=== PATIENT | male | born 1945 | race Caucasian/White ===

== ENCOUNTER → 2017-07-08 | Outpatient (CLI) | payer MEDICARE, OTHER ==
[~2017-07-08] MED LIST: ASPI325; ATEN50; Aspir-Low81 MG PO; Benicar40 MG PO; CLON.5 PO; CLOP75; Coq-10100 MG PO; DIOVAN; FINA5; FIORICET 50-301 EACH PO; ISOMON60ER; KRILL OIL500 MG PO; METF500C; NITR.4SL; NITR.6SL; NITR.6SL SL; OLME20-12. PO; OLME5TAB; OXYC10ER PO; RASA1; SENN187 PO; SIMV40; SIMV40 PO; SITA100T2 PO; SOLI5 PO; SYMMETREL PO; UBID10; [UNRECOGNIZED DRUG - REMARK]
[2017-07-08 15:33] LABS: BASOPHILS ABSOLUTE AUTO 0.03 K/mm3 (0.00-0.23); BASOPHILS PERCENT AUTO 0 % (0-2); EOSINOPHILS ABSOLUTE AUTO 0.21 K/mm3 (0.00-0.68); EOSINOPHILS PERCENT AUTO 3 % (0-6); Hematocrit 44.6 % (37.0-53.0); Hemoglobin 15.2 g/dL (13.5-17.5); IMMATURE GRAN ABSOLUTE AUTO 0.05 K/mm3 (0.00-0.10); IMMATURE GRAN PERCENT AUTO 1 % (0-1); LYMPHOCYTES ABSOLUTE AUTO 1.88 K/mm3 (0.84-5.20); LYMPHOCYTES PERCENT AUTO 23 % (21-46); MONOCYTES ABSOLUTE AUTO 0.69 K/mm3 (0.16-1.47); MONOCYTES PERCENT AUTO 8 % (4-13); Mean Corpuscular HGB Conc 34.1 g/dL (31.5-36.5); Mean Corpuscular Volume 91 fL (80-100); Mean Platelet Volume 11.1 fL (9.1-12.4); NEUTROPHILS ABSOLUTE AUTO 5.35 K/mm3 (1.96-9.15); NEUTROPHILS PERCENT AUTO 65 % (41-73); NRBC ABSOLUTE 0.02 K/mm3 (0.00-0.02); NRBC Auto 0.2 /100 WBC (0.0-0.2); Platelet Count 245 K/mm3 (150-400); RDW Coefficient Variation 13.6 % (11.7-14.2); RDW Standard Deviation 45.8 fL (35.1-46.3); White Blood Cell Count 8.21 K/mm3 (4.00-11.30)
[2017-07-08 16:05] LABS: Alanine Aminotransfer (ALT/SGP 22 U/L (12-78); Albumin, Blood 4.1 g/dL (3.4-5.0); Albumin/Globulin Ratio 1.2 (0.8-1.8); Alk Phos 75 U/L (50-136); Anion Gap 11 mmol/L (6-16); Aspartate Aminotrans (AST/SGOT 13 U/L (12-37); Bilirubin, Total 1.5 mg/dL (0.1-1.0); Blood Urea Nitrogen 23 mg/dL (8-24); Bun/Creatinine Ratio 23.8 (12.0-20.0); CO2, Blood 25 mmol/L (21-32); Calcium, Blood 9.2 mg/dL (8.5-10.1); Chloride, Blood 103 mmol/L (98-108); Creatinine, Blood 0.97 mg/dL (0.60-1.20); Globulin, Blood 3.3 g/dL (2.2-4.0); Glomerular Filtration Rate >60 (60-); Glucose, Blood 134 mg/dL (70-99); Potassium, Blood 4.4 mmol/L (3.5-5.5); Sodium, Blood 139 mmol/L (136-145); Total Protein, Blood 7.4 g/dL (6.4-8.2)
== END ==
LOC: LAB SHORT 14:41 → LAB 14:41
PROVIDERS: Family Medicine
DX: R42 Dizziness and giddiness (principal)
CPT/HCPCS: 80053; 85025

== ENCOUNTER 2018-06-29 13:16 | Day surgery (SDC) | payer MEDICARE, OTHER ==
[~2018-06-29] VITALS: Ht 167.6 cm; Wt 89.2 kg
[2018-06-29] MEDS ORDERED: LOSA25 (13:47)
== END 2018-06-29 15:20 | disposition home or self-care (01) ==
LOC: ORSCSDS 13:16
PROVIDERS: Surgery
PROC: 0DJD8ZZ Inspection of Lower Intestinal Tract, Via Natural or Artificial Opening Endoscopic (ICD-10-PCS; principal; 2018-06-29 14:30)
DX: Z12.11 Encounter for screening for malignant neoplasm of colon (principal); Z86.010 Personal history of colon polyps; K64.8 Other hemorrhoids; E11.9 Type 2 diabetes mellitus without complications; I10 Essential (primary) hypertension; Z79.899 Other long term (current) drug therapy; Z79.82 Long term (current) use of aspirin
CPT/HCPCS: 82947; J2704; J7120

== ENCOUNTER → 2019-04-05 | Outpatient (CLI) | payer MEDICARE, OTHER ==
[~2019-04-05] MED LIST changes: +LOSA25
== END | disposition home or self-care (01) ==
LOC: PLD 14:25 → LAB SHORT 14:25
DX: L82.1 Other seborrheic keratosis (principal)
CPT/HCPCS: 88305

== ENCOUNTER 2023-01-25 09:31 | Emergency (ER) | payer MEDICARE, OTHER ==
[~2023-01-25] VITALS: Ht 167.6 cm; Wt 90.7 kg
[2023-01-25] MEDS ORDERED: JANUMET 50-1,01 EACH PO (09:51)
[2023-01-25] MEDS ORDERED: LOSA25 PO (09:53)
[2023-01-25] MEDS ORDERED: MELATONIN5 M1 PO (09:55)
[2023-01-25] MEDS ORDERED: CARBLEV25 PO (09:55)
[2023-01-25] MEDS ORDERED: FURO20 PO (09:57)
[2023-01-25] MEDS ORDERED: POTA10T PO (09:57)
[2023-01-25 10:18] LABS: BASOPHILS ABSOLUTE AUTO 0.02 K/mm3 (0.00-0.23); BASOPHILS PERCENT AUTO 0 % (0-2); EOSINOPHILS ABSOLUTE AUTO 0.07 K/mm3 (0.00-0.68); EOSINOPHILS PERCENT AUTO 1 % (0-6); Hemoglobin 11.7 g/dL (13.5-17.5); IMMATURE GRAN ABSOLUTE AUTO 0.04 K/mm3 (0.00-0.10); IMMATURE GRAN PERCENT AUTO 1 % (0-1); LYMPHOCYTES ABSOLUTE AUTO 1.19 K/mm3 (0.84-5.20); LYMPHOCYTES PERCENT AUTO 16 % (21-46); MONOCYTES ABSOLUTE AUTO 0.46 K/mm3 (0.16-1.47); MONOCYTES PERCENT AUTO 6 % (4-13); Mean Corpuscular HGB 32.5 pg (26.0-34.0); Mean Corpuscular HGB Conc 34.4 g/dL (31.5-36.5); Mean Corpuscular Volume 94 fL (80-100); Mean Platelet Volume 10.7 fL (9.1-12.4); NEUTROPHILS ABSOLUTE AUTO 5.53 K/mm3 (1.96-9.15); NEUTROPHILS PERCENT AUTO 76 % (41-73); Platelet Count 215 K/mm3 (150-400); RDW Coefficient Variation 16.5 % (11.7-14.2); RDW Standard Deviation 56.7 fL (35.1-46.3); White Blood Cell Count 7.31 K/mm3 (4.00-11.30)
[2023-01-25 10:46] LABS: Albumin, Blood 3.7 g/dL (3.4-5.0); Albumin/Globulin Ratio 1.4 (0.8-1.8); Bilirubin, Total 2.4 mg/dL (0.1-1.0); Bun/Creatinine Ratio 17.8 (12.0-20.0); Calcium, Blood 8.3 mg/dL (8.5-10.1); Creatinine, Blood 0.79 mg/dL (0.60-1.20); Globulin, Blood 2.7 g/dL (2.2-4.0); Potassium, Blood 2.5 mmol/L (3.5-5.5); Total Protein, Blood 6.4 g/dL (6.4-8.2)
[2023-01-25 11:07] LABS: Source, Urine Clean Catch
[2023-01-25 11:16] LABS: Bilirubin, Urine Neg (Neg); Blood, Urine Neg (Neg); Glucose Qualitative, Urine Neg (Neg); Ketones, Urine Neg (Neg); Leukocyte Esterase, Urine Neg (Neg); Nitrite, Urine Neg (Neg); Protein, Urine 2+ (Neg); Specific Gravity, Urine 1.015 (1.003-1.022); Urobilinogen, Urine 2+ (Normal)
[2023-01-25 11:28] LABS: Appearance, Urine Clear (Clear); Bacteria Not Seen /hpf; Color, Urine Yellow (P-Yellow); Red Blood Cells, Urine Not Seen /hpf (0-2); Squamous Epithelial Cells Not Seen /hpf (Few); White Blood Cells, Urine Not Seen /hpf (0-5)
[2023-01-25] MEDS ORDERED: POTCHL20ER PO (13:01)
[2023-01-25 16:00] VITALS: BP 218/96
== END 2023-01-25 16:22 | disposition home or self-care (01) ==
LOC: ER 09:31
PROVIDERS: Physician Assistant
DX: E87.6 Hypokalemia (principal); T50.1X5A Adverse effect of loop [high-ceiling] diuretics, initial encounter; R41.82 Altered mental status, unspecified; G20.A1 Parkinson's disease without dyskinesia, without mention of fluctuations; E11.9 Type 2 diabetes mellitus without complications; I10 Essential (primary) hypertension; I25.10 Atherosclerotic heart disease of native coronary artery without angina pectoris; Z79.899 Other long term (current) drug therapy; Z79.82 Long term (current) use of aspirin
CPT/HCPCS: 80053; 81001; 83735; 83880; 85025; 93005; 93010; 96365; 96366; 99285-25; J3480; J7030; J7050

== ENCOUNTER 2023-02-01 17:59 | Emergency (ER) | payer MEDICARE, OTHER ==
[~2023-02-01] VITALS: Ht 167.6 cm; Wt 81.7 kg
[~2023-02-01 17:59] MED LIST changes: +CARBLEV25 PO; +FURO20 PO; +JANUMET 50-1,01 EACH PO; +LOSA25 PO; +MELATONIN5 M1 PO; +POTA10T PO; +POTCHL20ER PO
[2023-02-01 19:34] LABS: BASOPHILS ABSOLUTE AUTO 0.04 K/mm3 (0.00-0.23); BASOPHILS PERCENT AUTO 1 % (0-2); EOSINOPHILS ABSOLUTE AUTO 0.16 K/mm3 (0.00-0.68); EOSINOPHILS PERCENT AUTO 2 % (0-6); Hematocrit 35.9 % (37.0-53.0); Hemoglobin 12.3 g/dL (13.5-17.5); IMMATURE GRAN ABSOLUTE AUTO 0.07 K/mm3 (0.00-0.10); IMMATURE GRAN PERCENT AUTO 1 % (0-1); LYMPHOCYTES ABSOLUTE AUTO 1.74 K/mm3 (0.84-5.20); LYMPHOCYTES PERCENT AUTO 24 % (21-46); MONOCYTES ABSOLUTE AUTO 0.53 K/mm3 (0.16-1.47); MONOCYTES PERCENT AUTO 7 % (4-13); Mean Corpuscular HGB 32.7 pg (26.0-34.0); Mean Corpuscular HGB Conc 34.3 g/dL (31.5-36.5); Mean Corpuscular Volume 96 fL (80-100); Mean Platelet Volume 10.9 fL (9.1-12.4); NEUTROPHILS ABSOLUTE AUTO 4.69 K/mm3 (1.96-9.15); NEUTROPHILS PERCENT AUTO 65 % (41-73); Platelet Count 236 K/mm3 (150-400); RDW Standard Deviation 58.7 fL (35.1-46.3); Red Blood Cell Count 3.76 M/mm3 (4.30-5.90); White Blood Cell Count 7.23 K/mm3 (4.00-11.30)
[2023-02-01 19:57] LABS: Albumin/Globulin Ratio 1.4 (0.8-1.8); Bilirubin, Total 1.7 mg/dL (0.1-1.0); Bun/Creatinine Ratio 18.5 (12.0-20.0); Calcium, Blood 9.2 mg/dL (8.5-10.1); Creatinine, Blood 0.81 mg/dL (0.60-1.20); Globulin, Blood 2.8 g/dL (2.2-4.0); Total Protein, Blood 6.8 g/dL (6.4-8.2)
[2023-02-01 21:46] LABS: Source, Urine Clean Catch
[2023-02-01 22:08] LABS: Appearance, Urine Clear (Clear); Bilirubin, Urine Neg (Neg); Blood, Urine Neg (Neg); Color, Urine Yellow (P-Yellow); Glucose Qualitative, Urine Neg (Neg); Ketones, Urine Neg (Neg); Leukocyte Esterase, Urine Neg (Neg); Nitrite, Urine Neg (Neg); Protein, Urine 1+ (Neg); Urobilinogen, Urine 2+ (Normal)
[2023-02-01 22:50] VITALS: BP 231/115
== END 2023-02-01 22:50 | disposition home or self-care (01) ==
LOC: ER 17:59
PROVIDERS: Emergency Medicine
DX: G20.A1 Parkinson's disease without dyskinesia, without mention of fluctuations (principal); E11.9 Type 2 diabetes mellitus without complications; I10 Essential (primary) hypertension; I25.10 Atherosclerotic heart disease of native coronary artery without angina pectoris; Z79.899 Other long term (current) drug therapy; Z88.2 Allergy status to sulfonamides
CPT/HCPCS: 80053; 85025; 93005; 93010; 99285-25

== ENCOUNTER 2023-02-21 15:19 | Emergency (ER) | payer MEDICARE, OTHER ==
[~2023-02-21] VITALS: Ht 170.2 cm; Wt 88.0 kg
[2023-02-21 16:18] LABS: BASOPHILS ABSOLUTE AUTO 0.03 K/mm3 (0.00-0.23); BASOPHILS PERCENT AUTO 0 % (0-2); EOSINOPHILS ABSOLUTE AUTO 0.13 K/mm3 (0.00-0.68); EOSINOPHILS PERCENT AUTO 2 % (0-6); Hematocrit 37.3 % (37.0-53.0); Hemoglobin 12.6 g/dL (13.5-17.5); IMMATURE GRAN ABSOLUTE AUTO 0.08 K/mm3 (0.00-0.10); IMMATURE GRAN PERCENT AUTO 1 % (0-1); LYMPHOCYTES ABSOLUTE AUTO 1.63 K/mm3 (0.84-5.20); LYMPHOCYTES PERCENT AUTO 22 % (21-46); MONOCYTES ABSOLUTE AUTO 0.48 K/mm3 (0.16-1.47); MONOCYTES PERCENT AUTO 6 % (4-13); Mean Corpuscular HGB 32.8 pg (26.0-34.0); Mean Corpuscular HGB Conc 33.8 g/dL (31.5-36.5); Mean Corpuscular Volume 97 fL (80-100); Mean Platelet Volume 11.5 fL (9.1-12.4); NEUTROPHILS ABSOLUTE AUTO 5.11 K/mm3 (1.96-9.15); NEUTROPHILS PERCENT AUTO 69 % (41-73); Platelet Count 241 K/mm3 (150-400); RDW Coefficient Variation 17.2 % (11.7-14.2); RDW Standard Deviation 60.2 fL (35.1-46.3); Red Blood Cell Count 3.84 M/mm3 (4.30-5.90); White Blood Cell Count 7.46 K/mm3 (4.00-11.30)
[2023-02-21 17:01] LABS: Albumin, Blood 3.8 g/dL (3.4-5.0); Albumin/Globulin Ratio 1.2 (0.8-1.8); Bilirubin, Total 1.1 mg/dL (0.1-1.0); Calcium, Blood 9.2 mg/dL (8.5-10.1); Creatinine, Blood 0.74 mg/dL (0.60-1.20); Globulin, Blood 3.1 g/dL (2.2-4.0); Potassium, Blood 4.2 mmol/L (3.5-5.5); Total Protein, Blood 6.9 g/dL (6.4-8.2)
[2023-02-21 18:36] LABS: Source, Urine Clean Catch
[2023-02-21 19:15] LABS: Appearance, Urine Clear (Clear); Bilirubin, Urine Neg (Neg); Blood, Urine Neg (Neg); Color, Urine Yellow (P-Yellow); Glucose Qualitative, Urine Neg (Neg); Ketones, Urine 1+ (Neg); Leukocyte Esterase, Urine Neg (Neg); Nitrite, Urine Neg (Neg); Protein, Urine Neg (Neg); Urobilinogen, Urine 1+ (Normal)
[2023-02-21 21:30] VITALS: BP 195/101
== END 2023-02-21 22:01 | disposition home or self-care (01) ==
LOC: ER 15:19
PROVIDERS: Student in an Organized Health Care Education/Training Program
DX: S09.90XA Unspecified injury of head, initial encounter (principal); S40.021A Contusion of right upper arm, initial encounter; G20.A1 Parkinson's disease without dyskinesia, without mention of fluctuations; R29.6 Repeated falls; E11.9 Type 2 diabetes mellitus without complications; I10 Essential (primary) hypertension; I25.10 Atherosclerotic heart disease of native coronary artery without angina pectoris; Z79.82 Long term (current) use of aspirin; Z79.899 Other long term (current) drug therapy; W18.30XA Fall on same level, unspecified, initial encounter
CPT/HCPCS: 70450; 71045; 80053; 81003; 85025; 93005; 93010; 99285-25

== ENCOUNTER 2023-02-25 09:54 | Inpatient (IN) | payer MEDICARE, OTHER ==
[~2023-02-25] VITALS: Ht 182.9 cm; Wt 79.9 kg
[~2023-02-25 09:54] MED LIST changes: +ATEN25 PO; -ATEN50; -FINA5; +FINA5 PO; -LOSA25 PO; +LOSA50 PO; -NITR.4SL; +NITR.4SL SL; -RASA1; +RASA1 PO; -SIMV40 PO; +ZOCOR20 MG PO
[2023-02-25 10:45] LABS: BASOPHILS ABSOLUTE AUTO 0.02 K/mm3 (0.00-0.23); BASOPHILS PERCENT AUTO 0 % (0-2); EOSINOPHILS ABSOLUTE AUTO 0.13 K/mm3 (0.00-0.68); EOSINOPHILS PERCENT AUTO 2 % (0-6); Hematocrit 34.7 % (37.0-53.0); IMMATURE GRAN ABSOLUTE AUTO 0.07 K/mm3 (0.00-0.10); IMMATURE GRAN PERCENT AUTO 1 % (0-1); LYMPHOCYTES ABSOLUTE AUTO 1.52 K/mm3 (0.84-5.20); LYMPHOCYTES PERCENT AUTO 19 % (21-46); MONOCYTES ABSOLUTE AUTO 0.51 K/mm3 (0.16-1.47); MONOCYTES PERCENT AUTO 7 % (4-13); Mean Corpuscular HGB 32.8 pg (26.0-34.0); Mean Corpuscular HGB Conc 34.6 g/dL (31.5-36.5); Mean Corpuscular Volume 95 fL (80-100); Mean Platelet Volume 11.6 fL (9.1-12.4); NEUTROPHILS ABSOLUTE AUTO 5.63 K/mm3 (1.96-9.15); NEUTROPHILS PERCENT AUTO 71 % (41-73); Platelet Count 249 K/mm3 (150-400); RDW Coefficient Variation 17.1 % (11.7-14.2); Red Blood Cell Count 3.66 M/mm3 (4.30-5.90); White Blood Cell Count 7.88 K/mm3 (4.00-11.30)
[2023-02-25 10:55] LABS: Ethanol (Alcohol), Blood, Med <3 mg/dL; Magnesium, Blood 1.6 mg/dL (1.6-2.4)
[2023-02-25 10:57] LABS: Alanine Aminotransfer (ALT/SGP <6 U/L (12-78); Albumin, Blood 3.5 g/dL (3.4-5.0); Albumin/Globulin Ratio 1.2 (0.8-1.8); Alk Phos 75 U/L (50-136); Anion Gap 6 mmol/L (6-16); Aspartate Aminotrans (AST/SGOT 9 U/L (12-37); Bilirubin, Total 1.2 mg/dL (0.1-1.0); Blood Urea Nitrogen 18 mg/dL (8-24); Bun/Creatinine Ratio 31.9 (12.0-20.0); CO2, Blood 27 mmol/L (21-32); Calcium, Blood 8.6 mg/dL (8.5-10.1); Chloride, Blood 103 mmol/L (98-108); Creatinine, Blood 0.57 mg/dL (0.60-1.20); Globulin, Blood 2.8 g/dL (2.2-4.0); Glomerular Filtration Rate 100 (60-); Glucose, Blood 198 mg/dL (70-99); Potassium, Blood 4.4 mmol/L (3.5-5.5); Sodium, Blood 136 mmol/L (136-145); Total Protein, Blood 6.3 g/dL (6.4-8.2)
[2023-02-25 11:19] LABS: Source, Urine Voided
[2023-02-25 11:24] LABS: Appearance, Urine Clear (Clear); Bilirubin, Urine Neg (Neg); Blood, Urine Neg (Neg); Color, Urine Yellow (P-Yellow); Glucose Qualitative, Urine Neg (Neg); Ketones, Urine Neg (Neg); Leukocyte Esterase, Urine Neg (Neg); Nitrite, Urine Neg (Neg); Protein, Urine Neg (Neg); Urobilinogen, Urine 1+ (Normal)
[2023-02-25 11:46] LABS: U Amphetamine Screen Not Detected; U Barbituate Screen Not Detected; U Benzodiazapine Screen Not Detected; U Buprenorphine Screen Not Detected; U Cannabinoids Screen Not Detected; U Cocaine Screen Not Detected; U Methadone Screen Not Detected; U Methamphetamine Screen Not Detected; U Opiates Screen Not Detected; U Oxycodone Screen Not Detected; U Phencyclidine Screen Not Detected
[2023-02-26 16:48] VITALS: BP 183/89
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
--- NOTE | 2023-02-27 04:43 | NUR ---
SHIFT SUMMARY PT CONTINUES TO HAVE SITTER SITTING OUTSIDE THE ROOM. PT HAS BEEN SLEEPING OFF AND ON THROUGHOUT THE SHIFT. PT DOES BECOME RESTLESS AT TIMES, BUT MOST OFTEN IT IS DUE TO HIM NEEDING AN ATTENDS CHANGE. PT IS PARTICULAR ABOUT HOW HE WANTS THINGS, BUT HE HAS NOT BEEN AGRESSIVE TOWARDS STAFF THIS SHIFT. PT GET ATIVAN FOR AGRESSION, AND HAS BEEN MEDICATED WITH IT TWICE SO FAR THIS SHIFT. PT IS HIT OR MISS ON WHETHER OR NOT HE WILL TAKE MEDICATIONS. HIS IS VERY HELPFUL IN GETTING HIM TO TAKE HIS ORAL MEDICATIONS. CALL LIGHT IS WITHIN REACH.
[2023-02-27 08:04] VITALS: BP 214/93
[2023-02-27 10:00] VITALS: BP 173/77
[2023-02-27 11:57] VITALS: BP 152/82
[2023-02-27 15:01] VITALS: BP 126/73
--- NOTE | 2023-02-27 18:10 | NUR ---
PT AOX2-3 DOING VERY WELL. NO AGITATION NOTED AND COOPERATIVE OF ALL CARE. PT WAS ABLE TO MAKE HIS NEEDS KNOWN AND INTERACT WITH QUESTIONS ABOUT TAKING HIS PILLS AND HOW HE WAS DOING TODAY. BP WAS HIGH AT THE START OF SHIFT BP 215/93 P60. TREATED PT WITH MORNING MEDS AND PRN IV BP MED. NEXT BP WAS 173/77 P60 AND THE LAST BP FOR DAY SHIFT BP WAS 126/73 P54. WILL CONTINUE TO MONITOR. CALL LIGHT IS WITHIN REACH NOT DISTRESS AT THIS TIME.
[2023-02-27 20:02] VITALS: BP 125/66
--- NOTE | 2023-02-28 01:01 | NUR ---
PT HAS BEEN SLEEPING OFF AND ON. PT GETTING IN AND OUT OF BED, SETTING ALARMS OFF. PT NOW UP SITTING IN RECLINER. CHAIR ALARM IS ON. PT HAS SET IT OFF TWICE SINCE SITTING DOWN. PT LOOKING FOR HIS GLASSES. NO GLASSES CAN BE FOUND IN THE ROOM, HIS MAY HAVE TAKEN THEM HOME. WILL CONTINUE TO REDIRECT PT NEEDED. PT PLEASSANT AND COOPERATIVE AT THIS TIME.
[2023-02-28 04:09] VITALS: BP 183/88
--- NOTE | 2023-02-28 06:20 | NUR ---
SHIFT SUMMARY PTS MOOD AND ALERTNESS HAS GOTTEN BETTER SINCE I LAST HAD THIS PT YESTERDAY. PT UP IN CHAIR EATING SNACKS. PT IS IMPULSIVE AND CAN BE DIFFICULT TO REDIRECT AT TIMES. PT HAS BEEN PLEASANT AND COOPERATIVE THIS SHIFT. PT HAS BEEN TAKING HIS MEDICATIONS WITH PUDDING. PT HAS NOT SLEPT MUCH TONIGHT HE DID LAST NIGHT. CALL LIGHT IS WITHIN HIS REACH AND BED/CHAIR ALARMS ARE IN USE.
[2023-02-28 07:37] VITALS: BP 150/81
[2023-02-28 15:20] VITALS: BP 167/80
[2023-02-28 16:50] VITALS: BP 150/81
--- NOTE | 2023-02-28 18:42 | NUR ---
SHIFT SUMMARY Pt remains alert to self and date. Pleasantly confused. Gen weakness noted, up to chair with 1 person ast. Resp even nonlabored on RA. Feeds self, tolerating meals. Incontinent of urine. Pain and safety maintained. at bedside this evening.
[2023-02-28 19:21] VITALS: BP 142/80
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
[2023-03-01 04:50] VITALS: BP 145/78
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
--- NOTE | 2023-03-01 09:52 | NUR ---
[facility] NURSE THADDEUS CALLED FROM [facility] NURSE FARA CALLED TO TALK ABOUT HOW THE PATIENT IS DOING. NURSE THADDEUS, STATED THE PATIENT SHOULD NOT BE GETTING HALDOL IT IS CONTRAINDICATED IN [facility]. SHE STATED THAT THE PATIENT USUALLY USES SEROQUEL 25MG BID FOR AGITATION AND IT USUALLY WORKS WELL WITH THE PATITENT. 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 SHE ALSO RELAYED THAT THESE MEDS ARE OKAY TO BE CRUSHED.
[2023-03-01 10:08] VITALS: BP 168/100
[2023-03-01] MEDS ORDERED: QUET25 PO (16:18)
[2023-03-01 16:20] VITALS: BP 165/83
--- NOTE | 2023-03-01 16:56 | NUR ---
SHIFT SUMMARY PT VERY SLEEPY TILL APPROX 1300 TODAY. WAKING TO TAKE MEDS AND THEN QUICKLY FALLS BACK ASLEEP WITHOUT STIMULATION OF SOME KIND. PT MORE ALERT THIS AFTERNOON. ABLE TO AMBULATE IN ROOM AND SAT OUT IN HALLWAY BY THE WINDOW FOR SOME TIME WITH FAMILY. PT PLEASANT & COOPERATIVE THIS SHIFT. NICOLASA VEST DISCONTINUED IN THE AM DUE TO SEDATION AND NO NEED FOR IT. PT HAS NOT NEEDED IT SINCE. TAKING MEDS WELL. VISITING WITH FAMILY IN ROOM CURRENTLY. MEDICATED FOR NECK/BACK PAIN ONCE TODAY. NO OTHER ACUTE CHANGES IN ASSESSMENT AT THIS TIME. VS REVIEWED. CALL LIGHT IN REACH. DENIES OTHER NEEDS AT THIS TIME.
[2023-03-01 19:51] VITALS: BP 116/62
[2023-03-02 02:31] VITALS: BP 121/70
--- NOTE | 2023-03-02 06:42 | NUR ---
SHIFT SUMMARY: PT IS ADMITTED FOR CONFUSION STATE AND IS A DNR. HE IS ALERT AND ABLE TO MAKE MOST NEEDS KNOWN. ADLs HAVE BEEN 1P THROUGHOUT SHIFT. DENIES PAIN OR DISCOMFORT WHEN ASKED. IV TO LEFT FOREARM IS PATENT WITH A DRESSING THAT IS CDI. WAS AWAKE FROM ABOUT MIDNIGHT ON AND SAT IN RECLINING CHAIR.
[2023-03-02 07:39] VITALS: BP 131/73
[2023-03-02 09:01] VITALS: BP 165/77
--- NOTE | 2023-03-02 17:26 | NUR ---
SHIFT SUMMARY- PT IS ALERT, PLESANT AND COOPERTIVE. HE IS EATING AND DRINKING WELL. FAMILY HAS BEEN AT BEDSIDE THROUGHOUT THIS SHIFT. PT FELL THIS MORNING, VS WERE STABLE, NO NOTED INJURIES. FAMILY NOTIFIED, AND CNC MACHINE PROGRAMMER NOTIFIED. HE WAS UP TO THE CHAIR FOR MUCH OF THIS SHIFT. IS CURRENTLY IN THE SHOWER. HIS BED IS IN THE LOW POSITION AND CALL LIGHT IS WITHIN REACH.
[2023-03-02 20:08] VITALS: BP 151/81
[2023-03-02 21:16] VITALS: BP 154/86
[2023-03-02 21:49] VITALS: BP 154/86
[2023-03-03 06:03] VITALS: BP 203/100
--- NOTE | 2023-03-03 06:29 | NUR ---
HIFT SUMMARY: PT IS ADMITTED FOR CONFUSION STATE AND IS A DNR. HE IS ALERT AND ABLE TO MAKE MOST NEEDS KNOWN. ADLs HAVE BEEN 1P THROUGHOUT SHIFT. DENIES PAIN OR DISCOMFORT WHEN ASKED. IV TO LEFT FOREARM IS PATENT WITH A DRESSING THAT IS CDI. HAD A NON INJURY FALL ABOUT 2109. HE STOOD UP FROM RECLINER AND STATED HE GOT HIS FOOT CAUGHT IN THE BATH BLANKET THAT WAS COVERING HIM CAUSING HIM TO GO TO ONE KNEE. TUBE BUFFER FOUND HIM KNEELING ON HIS RIGHT KNEE IN FRONT OF RECLINER. CALL LIGHT WAS IN REACH. CHAIR ALARM WAS IN USE. , CHARGE NURSE AND MD WERE NOTIFIED. LATER IN THE SHIFT WAS UP WALKING DUE TO CONFUSION AND AGITATION FOR A LITTLE OVER AN HOUR AND WAS NOT REDIRECTABLE DURING THIS TIME. WAS UP IN THIS STATE TO THE POINT THAT HE BECAME EXHAUSTED AND NEAR COLLAPSE. REFUSED MEDS X2. WAS SOUND ASLEEP X1
[2023-03-03 07:42] VITALS: BP 192/116
[2023-03-03 08:04] VITALS: BP 150/114
[2023-03-03] MEDS ORDERED: TAMSULOSIN HCL0.4 M1 PO (13:11)
[2023-03-03] MEDS ORDERED: ZINC15 PO (13:13)
[2023-03-03] MEDS ORDERED: Vitamin D1000 UNI1 PO (13:13)
[2023-03-03] MEDS ORDERED: B-12500 MC2 PO (13:14)
[2023-03-03] MEDS ORDERED: GEMTESA75 MG PO (13:17)
--- NOTE | 2023-03-03 18:52 | NUR ---
SHIFT SUMMARY: PT A/O X 1 2 ASSIST. PT LETHARGIC ALL DAY, UNABLE TO FULLY AROUSE. PT WOULD WAKE UP WITH VERBAL STIMULI AND ANSWER YES NO QUESTIONS BUT WOULD NOT STAY ALERT ENOUGH TO FOLLOW COMMANDS. PT DID WAKE UP AROUND 1845 AND ATE SOME DINNER. ENSURE PROVIDED. PT STARTED IV ABX FOR ABSCESS ON LEFT FOREARM WHICH WAS DESCRIBED BY NIGHT RN "OLD IV START" PHOTOS TAKEN AND OUTLINE OF REDDENED AREA COMPLETED. PHOTO ON CHART.
[2023-03-03 20:25] VITALS: BP 146/75
[2023-03-04 03:52] VITALS: BP 104/64
--- NOTE | 2023-03-04 05:42 | NUR ---
SHIFT SUMMARY 77 YR M ADMITTED ON 03/01/23 FOR CONFUSION. DNR. NO ACUTE CHANGES THIS SHIFT. PT HAS BEEN AWAKE AND ALERT FOR MOST OF THIS SHIFT. HE COMMUNICATED WITH STAFF REGARDING HIS NEEDS AND FOLLOWS SIMPLE INSTRUCTION AT THE TIME GIVEN, BUT IS STILL IMPULSIVE AND TRYING TO GET OUT OF BED EVERY FEW MINUTES TO "PEE". HE HAS BEEN PLEASANT THIS SHIFT AND TOOK ALL OF HIS 2100 MEDS. HE IS A 1-2 PERSON ASSIST TO THE BATHROOM AND LIKES TO WALK AROUND THE ROOM ABIT. HE APPEARS TO BE BORED W/ STAYING IN BED.
[2023-03-04 07:48] VITALS: BP 175/84
[2023-03-04 07:50] LABS: BASOPHILS ABSOLUTE AUTO 0.03 K/mm3 (0.00-0.23); BASOPHILS PERCENT AUTO 0 % (0-2); EOSINOPHILS ABSOLUTE AUTO 0.06 K/mm3 (0.00-0.68); EOSINOPHILS PERCENT AUTO 1 % (0-6); Hematocrit 36.7 % (37.0-53.0); Hemoglobin 12.6 g/dL (13.5-17.5); IMMATURE GRAN ABSOLUTE AUTO 0.14 K/mm3 (0.00-0.10); IMMATURE GRAN PERCENT AUTO 1 % (0-1); LYMPHOCYTES ABSOLUTE AUTO 1.14 K/mm3 (0.84-5.20); LYMPHOCYTES PERCENT AUTO 12 % (21-46); MONOCYTES ABSOLUTE AUTO 0.77 K/mm3 (0.16-1.47); MONOCYTES PERCENT AUTO 8 % (4-13); Mean Corpuscular HGB 32.4 pg (26.0-34.0); Mean Corpuscular HGB Conc 34.3 g/dL (31.5-36.5); Mean Corpuscular Volume 94 fL (80-100); Mean Platelet Volume 11.5 fL (9.1-12.4); NEUTROPHILS ABSOLUTE AUTO 7.57 K/mm3 (1.96-9.15); NEUTROPHILS PERCENT AUTO 78 % (41-73); Platelet Count 271 K/mm3 (150-400); RDW Coefficient Variation 16.9 % (11.7-14.2); RDW Standard Deviation 57.7 fL (35.1-46.3); Red Blood Cell Count 3.89 M/mm3 (4.30-5.90); White Blood Cell Count 9.71 K/mm3 (4.00-11.30)
[2023-03-04 08:24] LABS: Bun/Creatinine Ratio 25.3 (12.0-20.0); Calcium, Blood 9.2 mg/dL (8.5-10.1); Creatinine, Blood 0.75 mg/dL (0.60-1.20); Potassium, Blood 4.1 mmol/L (3.5-5.5)
[2023-03-04 15:53] VITALS: BP 126/69
--- NOTE | 2023-03-04 17:37 | NUR ---
SHIFT SUMMARY: PT A/O X 2, ONE ASSIST WITH WALKER AND GB, PLEASANT AND COOPERATIVE WITH CARE. PT WAS AWAKE FOR MOST OF DAY, TOOK NAP THIS AFTERNOON AND WAS EASILY AWOKEN TO VERBAL STIMULI. PT WAS IN ROOM AND AT 1310 RAPID RESPONSE WAS CALLED ON HER BEHALF DUE TO HER BECOMING UNRESPONSIVE AFTER COMING BACK FROM THE BATHROOM. SARAH AROUSED EVENTUALLY AND DAUGHTER WHO WAS ALSO PRESENT TOOK HER TO THE ER. ESEQUIEL WAS ASSESSED FOR CONCERN OF ANXIETY OVER HIS BUT HE REPORTED "NO I AM FINE, SHE'S DONE THIS BEFORE." SON CAME IN SHORTLY AFTER AND STAYED A WHILE AND PT SHOWED NO SIGNS OF ANXIETY. PT EATING WELL AND ABLE TO MAKE NEEDS KNOWN TODAY.
[2023-03-04 20:15] VITALS: BP 144/75
[2023-03-05 02:39] VITALS: BP 120/69
[2023-03-05 07:22] VITALS: BP 137/75
[2023-03-05 15:52] VITALS: BP 159/78
[2023-03-05 17:40] VITALS: BP 179/83
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
[2023-03-05 21:41] VITALS: BP 165/80
[2023-03-06 02:12] VITALS: BP 159/81
--- NOTE | 2023-03-06 04:28 | NUR ---
SHIFT SUMMARY A/OX2. CONFUSED. BECAME INCREASINGLY RESTLESS/IRRITABLE AROUND MIDNIGHT. PRN ATIVAN GIVEN X1, PT SLEPT FOR ABOUT 1.5 HOURS BEORE WAKING AGAIN. CONTINENT/INCONTINENT, HAD LARGE BM AT BSC AT START OF SHIFT. REDNESS/SWELLING TO LFA HAS DECREASED FROM THE ORIGINAL OUTLINE, STILL HARD AND WARM TO TOUCH. NO REPORTED PAIN. VIDEO MONITORING FOR SAFETY, BED ALARM ON. NONSKID SOCKS ON. CALL LIGHT IN REACH
[2023-03-06 07:56] VITALS: BP 204/106
[2023-03-06 09:29] VITALS: BP 110/57
[2023-03-06] MEDS ORDERED: CARV6.25 PO (11:26)
[2023-03-06] MEDS ORDERED: LORA.5 PO (11:27)
[2023-03-06] MEDS ORDERED: CEPH500 PO (11:27)
[2023-03-06] MEDS ORDERED: OLAN5 PO (11:28)
--- NOTE | 2023-03-06 12:55 | NUR ---
SHIFT/DISCHARGE SUMMARY: PATIENT IS AWAKE, ALERT AND ORIENTED TO SELF, PLACED AND FAMILY MEMBER AT BEDSIDE. PATIENT IS CONFUSED, CALM, PLEASANT AND COOPERATIVE c CARE. PATIENT DENIES CP/PRESSURE, SOB, N/V, DIZZINESS AND GENERALIZED PAIN. PATIENT RECEIVED IV ABX AND SCHEDULED MEDS PER EMAR. CELLULITIS TO L FOREARM HAS IMPROVED BASED ON OUTLINE MARKINGS, STILL HARD AND WARM TO THE TOUCH AND ENGINEER OPERATIONS AND MAINTENANCE. PATIENT IS CONT/INCON OF BOWELS/BLADDER, LETY CARE, ATTENDS CHANGED AND USES [facility] c 1 ASSIST, FWW AND GAITBELT. VITAL SIGNS REVIEWED. PIV TO R FOREARM DC'D. PATIENT DISCHARGE HOME c HH SERVICES. DISCHARGED INSTRUCTIONS PACKET GIVEN TO PATIENT. EDUCATE PATIENT REGARDING ADMITTING DX'S OF CONFUSION STATE, S/S, TX, NEW PRESCRIBED MEDS, HH SERVICES, DAILY CARE TO L FOREARM CELLULITIS AND TO FOLLOW UP c PCP. PATIENT AND LIOR SON AT BEDSIDE VERBALIZED UNDERSTANDING AND NO FURTHER QUESTIONS. RX WAS FAXED TO SON/PATIENT PREFERRED PHARMACY ([facility]). ALL PATIENT PERSONAL BELONGINGS WERE SENT HOME c THE PATIENT. PATIENT LEFT THE ROOM AT AROUND 1245 AND WAS TRANSPORTED VIA WHEELCHAIR BY [facility] TO PATIENT ENTRANCE.
== END 2023-03-06 12:48 | disposition home health service (06) | DRG 92 ==
LOC: ER 09:54 → MEDS 02-26 09:55
PROVIDERS: Emergency Medicine; Internal Medicine; ADMIT Internal Medicine
DX: G92.8 Other toxic encephalopathy (principal); F02.811 Dementia in other diseases classified elsewhere, unspecified severity, with agitation; L03.114 Cellulitis of left upper limb; F05 Delirium due to known physiological condition; E11.9 Type 2 diabetes mellitus without complications; I10 Essential (primary) hypertension; I25.10 Atherosclerotic heart disease of native coronary artery without angina pectoris; G20.A1 Parkinson's disease without dyskinesia, without mention of fluctuations; Z66 Do not resuscitate; I80.8 Phlebitis and thrombophlebitis of other sites; T50.915A Adverse effect of multiple unspecified drugs, medicaments and biological substances, initial encounter; Z79.82 Long term (current) use of aspirin
CPT/HCPCS: 36415; 51701; 70450; 71045; 76882; 80048; 80053; 81003; 82947; 83735; 84484; 85025; 93005; 93010; 96372; 96374; 96375; 96376; 97112; 97116; 97161; 99285-25; A9270; G0378; J0690; J1630; J1650; J2060; J7050